=== PATIENT | male | born 1955 | race Caucasian/White ===

== ENCOUNTER 2021-02-15 12:15 | Emergency (ER) | payer OTHER ==
[~2021-02-15] VITALS: Ht 172.7 cm; Wt 65.5 kg
[~2021-02-15 12:15] MED LIST: ALBU8.5H8 INH; BUDE10.22 INH; CEFD300C3 PO; FOLI0.4T6 PO; LACT1CAP26 PO; MULT-25 PO; PANT40TA54 PO; POTA10TA36 PO; PRED10TA23 PO; THIA50TA10 PO
[2021-02-15 13:12] VITALS: BP 122/79
== END 2021-02-15 13:46 | disposition home or self-care (01) ==
LOC: ER 12:15
DX: F41.9 Anxiety disorder, unspecified (principal); F10.20 Alcohol dependence, uncomplicated; J44.9 Chronic obstructive pulmonary disease, unspecified; Z79.899 Other long term (current) drug therapy; Z88.0 Allergy status to penicillin; Z72.89 Other problems related to lifestyle; F43.10 Post-traumatic stress disorder, unspecified; Y90.9 Presence of alcohol in blood, level not specified
CPT/HCPCS: 99283